=== PATIENT | male | born 1935 | race African-American/Black ===

== ENCOUNTER 2021-02-27 16:27 | Emergency (ER) | payer MEDICARE, MEDICAID ==
[~2021-02-27] VITALS: Ht 167.6 cm; Wt 69.0 kg
[~2021-02-27 16:27] MED LIST: GABA-529 MT
[2021-02-27 16:33] VITALS: BP 130/62
== END 2021-02-28 00:17 | disposition left against medical advice (07) ==
LOC: ER 16:27
DX: Z53.21 Procedure and treatment not carried out due to patient leaving prior to being seen by health care provider (principal)

== ENCOUNTER 2021-03-06 21:14 | Inpatient (IN) | payer MEDICARE, MEDICAID ==
[~2021-03-06] VITALS: Ht 170.2 cm; Wt 61.0 kg
[2021-03-06] MEDS ORDERED: ASPIRIN 325MG EC TABLET PO ONE (22:45)
[2021-03-06 22:46] LABS: CLARITY URINE CLEAR (CLEAR); COLOR URINE YELLOW (YELLOW); KETONES URINE NEGATIVE (NEGATIVE); LEUKOCYTE ESTERASE URINE NEGATIVE (NEGATIVE); NITRITE URINE NEGATIVE (NEGATIVE); OCCULT BLOOD URINE NEGATIVE (NEGATIVE); PH URINE 5.5 (4.5-8.0); PROTEIN URINE NEGATIVE (NEGATIVE); SPECIFIC GRAVITY URINE 1.008 (1.005-1.030); UROBILINOGEN URINE 0.2 E.U./dL (0.2-1.0)
[2021-03-06 22:58] LABS: *AMPHETAMINES SCREEN URINE NEGATIVE (NEGATIVE); *BARBITURATES SCREEN URINE NEGATIVE (NEGATIVE); *BENZODIAZEPINES SCREEN URINE NEGATIVE (NEGATIVE); *COCAINE SCREEN URINE NEGATIVE (NEGATIVE); METHADONE URINE SCREEN NEGATIVE (NEGATIVE); OPIATES URINE SCREEN NEGATIVE (NEGATIVE)
[2021-03-06 22:59] LABS: CANNABINOID URINE SCREEN NEGATIVE (NEGATIVE); PHENCYCLIDINE URINE SCREEN NEGATIVE (NEGATIVE)
[2021-03-07] MEDS ORDERED: GABAPENTIN 300MG CAPSULE PO ONE (00:15)
[2021-03-07] MEDS ORDERED: TRAZODONE HCL 50MG TABLET PO SCH (00:15)
[2021-03-07] MEDS ORDERED: DEXTROSE 50% WATER 50ML SYRINGE IV PRN (05:45)
[2021-03-07 06:00] VITALS: BP 154/78
[2021-03-07] MEDS ORDERED: BLOOD SUGAR DIAGNOSTIC STRIP TEST SCH (07:20)
[2021-03-07] MEDS ORDERED: INSULIN LISPRO 100 UNITS/ML SUBCUT SCH (07:50)
[2021-03-07 08:43] VITALS: BP 162/62
[2021-03-07] MEDS ORDERED: REGADENOSON 0.4 MG/5 ML IV SCH (09:30)
[2021-03-07] MEDS ORDERED: ACET-2708 MT (13:38)
== END 2021-03-07 10:38 | disposition left against medical advice (07) | DRG 313 ==
LOC: ER 21:14 → 6WST 03-07 01:03 → ENRESERV 03-07 03:07
PROVIDERS: ADMIT Family Medicine; ATTEND Family Medicine
DX: R07.9 Chest pain, unspecified (principal); E11.9 Type 2 diabetes mellitus without complications; I10 Essential (primary) hypertension; F17.200 Nicotine dependence, unspecified, uncomplicated; J44.9 Chronic obstructive pulmonary disease, unspecified; R51.9 Headache, unspecified; Z53.29 Procedure and treatment not carried out because of patient's decision for other reasons
CPT/HCPCS: 71045; 80305; 81003; 82962; 93005; 99285

== ENCOUNTER 2021-04-15 12:32 | Emergency (ER) | payer MEDICARE, MEDICAID ==
[~2021-04-15] VITALS: Ht 167.6 cm; Wt 66.0 kg
[~2021-04-15 12:32] MED LIST changes: +ACET-2708 MT
[2021-04-15 12:43] VITALS: BP 148/82
== END 2021-04-15 17:10 | disposition left against medical advice (07) ==
LOC: ER 12:32
DX: G89.29 Other chronic pain (principal); M79.672 Pain in left foot; M79.671 Pain in right foot
CPT/HCPCS: 99281

== ENCOUNTER 2021-04-19 14:58 | Emergency (ER) | payer OTHER, MEDICAID ==
[~2021-04-19] VITALS: Ht 175.3 cm; Wt 84.0 kg
[2021-04-19 15:06] VITALS: BP 147/64
[2021-04-19] MEDS ORDERED: NAPROXEN 375MG TABLET PO ONE (20:15)
[2021-04-19 20:39] LABS: CHLORIDE 99 mEq/L (98-107)
[2021-04-19 20:40] LABS: BASOPHILS % 1.7 % (0.0-2.0); EOSINOPHILS % 3.3 % (0.0-5.0); HEMATOCRIT. 33.2 % (42.0-52.0); HEMOGLOBIN. 10.4 g/dL (14.0-18.0); LYMPHOCYTES % 42.5 % (20.0-50.0); MEAN CORPUSCULAR HEMOGLOBIN 23.2 pg (28.0-32.0); MEAN PLATELET VOLUME 7.4 fl (7.4-10.4); MONOCYTES % 10.4 % (2.0-8.0); NEUTROPHILS % 42.1 % (40.0-76.0); PLATELET 404 x1000/uL (130-400); RED BLOOD CELL COUNT 4.49 mill/uL (4.7-6.1); RED CELL DISTRIBUTION WIDTH 17.3 % (11.6-14.6)
[2021-04-19] MEDS ORDERED: NAPR-679 MT (21:19)
== END 2021-04-19 22:40 | disposition home or self-care (01) ==
LOC: ER 14:58
DX: M79.10 Myalgia, unspecified site (principal); I49.9 Cardiac arrhythmia, unspecified
CPT/HCPCS: 36415; 80053; 85025; 93005; 99284

== ENCOUNTER 2021-04-29 12:16 | Emergency (ER) | payer OTHER, MEDICAID ==
[~2021-04-29] VITALS: Ht 170.2 cm; Wt 72.0 kg
[~2021-04-29 12:16] MED LIST changes: +NAPR-679 MT
[2021-04-29 13:03] VITALS: BP 156/65
== END 2021-04-29 13:57 | disposition home or self-care (01) ==
LOC: ER 12:16
DX: E11.9 Type 2 diabetes mellitus without complications (principal); I10 Essential (primary) hypertension
CPT/HCPCS: 93005; 99283

== ENCOUNTER 2021-05-04 09:52 | Emergency (ER) | payer OTHER, MEDICAID ==
[~2021-05-04] VITALS: Ht 167.6 cm; Wt 68.5 kg
[2021-05-04 11:24] LABS: BASOPHILS % 0.9 % (0.0-2.0); EOSINOPHILS % 2.5 % (0.0-5.0); HEMATOCRIT. 32.5 % (42.0-52.0); LYMPHOCYTES % 46.2 % (20.0-50.0); MEAN CORPUSCULAR HEMOGLOBIN 23.1 pg (28.0-32.0); MEAN PLATELET VOLUME 7.6 fl (7.4-10.4); MONOCYTES % 10.7 % (2.0-8.0); NEUTROPHILS % 39.7 % (40.0-76.0); PLATELET 408 x1000/uL (130-400); RED BLOOD CELL COUNT 4.33 mill/uL (4.7-6.1); RED CELL DISTRIBUTION WIDTH 17.8 % (11.6-14.6)
[2021-05-04 11:30] LABS: CHLORIDE 104 mEq/L (98-107)
[2021-05-04 11:34] LABS: ETHANOL BLOOD < 10 mg/dL; PROTHROMBIN TIME 10.6 sec (9.6-11.0)
[2021-05-04] MEDS ORDERED: PREG50CA MT (13:04)
[2021-05-04 15:06] LABS: CLARITY URINE CLEAR (CLEAR); COLOR URINE YELLOW (YELLOW); KETONES URINE NEGATIVE (NEGATIVE); LEUKOCYTE ESTERASE URINE NEGATIVE (NEGATIVE); NITRITE URINE NEGATIVE (NEGATIVE); OCCULT BLOOD URINE NEGATIVE (NEGATIVE); PROTEIN URINE NEGATIVE (NEGATIVE); SPECIFIC GRAVITY URINE 1.003 (1.005-1.030); UROBILINOGEN URINE 0.2 E.U./dL (0.2-1.0)
[2021-05-04 15:17] LABS: *AMPHETAMINES SCREEN URINE NEGATIVE (NEGATIVE); *BARBITURATES SCREEN URINE NEGATIVE (NEGATIVE); *BENZODIAZEPINES SCREEN URINE NEGATIVE (NEGATIVE); *COCAINE SCREEN URINE NEGATIVE (NEGATIVE); METHADONE URINE SCREEN NEGATIVE (NEGATIVE); OPIATES URINE SCREEN NEGATIVE (NEGATIVE)
[2021-05-04 15:18] LABS: CANNABINOID URINE SCREEN NEGATIVE (NEGATIVE); PHENCYCLIDINE URINE SCREEN NEGATIVE (NEGATIVE)
[2021-05-04 15:24] VITALS: BP 152/62
== END 2021-05-04 16:10 | disposition home or self-care (01) ==
LOC: ER 09:52
DX: G62.9 Polyneuropathy, unspecified (principal)
CPT/HCPCS: 36415; 80053; 80305; 80320; 81003; 85025; 99283; G0480

== ENCOUNTER 2021-05-04 17:03 | Emergency (ER) | payer OTHER, MEDICAID ==
[~2021-05-04] VITALS: Ht 170.2 cm; Wt 57.0 kg
[~2021-05-04 17:03] MED LIST changes: +PREG50CA MT
[2021-05-05] MEDS ORDERED: ACETAMINOPHEN 325MG TABLET PO ONE
[2021-05-05 02:05] VITALS: BP 139/67
== END 2021-05-05 02:07 | disposition home or self-care (01) ==
LOC: ER 17:03
DX: R10.9 Unspecified abdominal pain (principal); Z53.21 Procedure and treatment not carried out due to patient leaving prior to being seen by health care provider
CPT/HCPCS: 99282

== ENCOUNTER 2021-05-07 13:57 | Emergency (ER) | payer OTHER, MEDICAID ==
[~2021-05-07] VITALS: Ht 165.1 cm; Wt 80.0 kg
[2021-05-07] MEDS ORDERED: PREG50CA MT (15:04)
[2021-05-07 15:15] VITALS: BP 128/76
== END 2021-05-07 15:15 | disposition home or self-care (01) ==
LOC: ER 13:57
DX: E11.42 Type 2 diabetes mellitus with diabetic polyneuropathy (principal); I10 Essential (primary) hypertension; E78.5 Hyperlipidemia, unspecified; Z79.899 Other long term (current) drug therapy
CPT/HCPCS: 99283

== ENCOUNTER 2021-06-03 14:57 | Emergency (ER) | payer OTHER, MEDICAID ==
[~2021-06-03] VITALS: Ht 167.6 cm; Wt 80.0 kg
[2021-06-03 14:59] VITALS: BP 134/72
[2021-06-03 19:33] LABS: ETHANOL BLOOD < 10 mg/dL
== END 2021-06-03 16:45 | disposition left against medical advice (07) ==
LOC: ER 14:57
DX: Z13.9 Encounter for screening, unspecified (principal)
CPT/HCPCS: 36415; 80307; 80320; 80329; 99283; G0480

== ENCOUNTER 2021-06-03 17:03 | Emergency (ER) | payer OTHER, MEDICAID ==
[~2021-06-03] VITALS: Ht 167.6 cm; Wt 57.0 kg
[2021-06-03] MEDS ORDERED: IBUPROFEN 600MG TABLET PO STA (17:53)
[2021-06-03] MEDS ORDERED: ACETAMINOPHEN 325MG TABLET PO ONE (18:00)
[2021-06-03 18:23] VITALS: BP 176/47
[2021-06-03 19:09] LABS: EOSINOPHILS % 3.1 % (0.0-5.0); HEMOGLOBIN. 10.3 g/dL (14.0-18.0); MEAN CORPUSCULAR HEMOGLOBIN 23.7 pg (28.0-32.0); MEAN CORPUSCULAR VOLUME 75.5 fL (80.0-94.0); MEAN PLATELET VOLUME 7.7 fl (7.4-10.4); MONOCYTES % 7.9 % (2.0-8.0); PLATELET 395 x1000/uL (130-400); RED BLOOD CELL COUNT 4.37 mill/uL (4.7-6.1); RED CELL DISTRIBUTION WIDTH 18.6 % (11.6-14.6)
[2021-06-03 19:14] LABS: CHLORIDE 104 mEq/L (98-107)
== END 2021-06-03 19:57 | disposition home or self-care (01) ==
LOC: ER 17:03
DX: R25.2 Cramp and spasm (principal); I10 Essential (primary) hypertension; Z20.822 Contact with and (suspected) exposure to COVID-19; Z98.890 Other specified postprocedural states
CPT/HCPCS: 36415; 71045; 80053; 84484; 85025; 87426; 93005; 99285

== ENCOUNTER 2021-06-07 13:36 | Emergency (ER) | payer OTHER, MEDICAID ==
[~2021-06-07] VITALS: Ht 170.2 cm; Wt 69.0 kg
[2021-06-07 13:39] VITALS: BP 154/88
== END 2021-06-07 14:32 | disposition left against medical advice (07) ==
LOC: ER 13:48
DX: M79.10 Myalgia, unspecified site (principal); I10 Essential (primary) hypertension; Z79.899 Other long term (current) drug therapy; Z98.890 Other specified postprocedural states
CPT/HCPCS: 99283

== ENCOUNTER 2021-06-07 14:49 | Emergency (ER) | payer OTHER, MEDICAID ==
[~2021-06-07] VITALS: Ht 167.6 cm; Wt 60.0 kg
[2021-06-07 14:53] VITALS: BP 165/61
== END 2021-06-07 16:27 | disposition left against medical advice (07) ==
LOC: ER 14:49
DX: Z53.21 Procedure and treatment not carried out due to patient leaving prior to being seen by health care provider (principal)

== ENCOUNTER 2021-06-09 16:07 | Emergency (ER) | payer OTHER, MEDICAID ==
[~2021-06-09] VITALS: Ht 172.7 cm; Wt 64.0 kg
[2021-06-09 17:31] LABS: BASOPHILS % 1.1 % (0.0-2.0); EOSINOPHILS % 2.1 % (0.0-5.0); HEMATOCRIT. 32.3 % (42.0-52.0); MEAN CORPUSCULAR HEMOGLOBIN 23.4 pg (28.0-32.0); MEAN CORPUSCULAR VOLUME 75.9 fL (80.0-94.0); MONOCYTES % 10.3 % (2.0-8.0); NEUTROPHILS % 42.5 % (40.0-76.0); PLATELET 380 x1000/uL (130-400); RED BLOOD CELL COUNT 4.26 mill/uL (4.7-6.1); RED CELL DISTRIBUTION WIDTH 18.7 % (11.6-14.6)
[2021-06-09 17:39] LABS: CHLORIDE 105 mEq/L (98-107)
[2021-06-09] MEDS ORDERED: KETOROLAC 60MG/2ML VIAL IM ONE (18:45)
[2021-06-09] MEDS ORDERED: TRAMADOL 50MG TABLET PO ONE (18:45)
[2021-06-09 21:06] VITALS: BP 145/81
== END 2021-06-09 21:08 | disposition home or self-care (01) ==
LOC: ER 16:07
DX: G89.29 Other chronic pain (principal); M79.672 Pain in left foot; M79.671 Pain in right foot; M79.642 Pain in left hand; M79.641 Pain in right hand
CPT/HCPCS: 36415; 80048; 85025; 96372; 99283; J1885

== ENCOUNTER 2021-06-11 13:35 | Emergency (ER) | payer OTHER, MEDICAID ==
[~2021-06-11] VITALS: Ht 167.6 cm; Wt 73.0 kg
[2021-06-11 13:36] VITALS: BP 148/76
[2021-06-11] MEDS ORDERED: IBUPROFEN 600MG TABLET PO STA (15:20)
[2021-06-11] MEDS ORDERED: GABAPENTIN 300MG CAPSULE PO STA (16:34)
== END 2021-06-11 17:55 | disposition home or self-care (01) ==
LOC: ER 13:35
DX: G62.9 Polyneuropathy, unspecified (principal); G89.29 Other chronic pain; M79.672 Pain in left foot; M79.671 Pain in right foot; M79.642 Pain in left hand; M79.641 Pain in right hand; I10 Essential (primary) hypertension; Z79.899 Other long term (current) drug therapy
CPT/HCPCS: 99283

== ENCOUNTER 2021-06-11 18:03 | Emergency (ER) | payer OTHER, MEDICAID ==
[~2021-06-11] VITALS: Ht 162.6 cm; Wt 60.0 kg
[2021-06-11] MEDS ORDERED: IBUPROFEN 400MG TABLET PO ONE (22:30)
[2021-06-11 23:16] VITALS: BP 134/82
== END 2021-06-11 23:16 | disposition home or self-care (01) ==
LOC: ER 18:03
DX: G62.9 Polyneuropathy, unspecified (principal); R51.9 Headache, unspecified; I10 Essential (primary) hypertension
CPT/HCPCS: 82962; 99282

== ENCOUNTER 2021-06-12 01:02 | Emergency (ER) | payer OTHER, MEDICAID ==
[~2021-06-12] VITALS: Ht 157.5 cm; Wt 61.0 kg
[2021-06-12] MEDS ORDERED: HYDROCODONE/ACETAMINOPHEN 5/325MG TABLET PO ONE (02:00)
[2021-06-12 02:06] VITALS: BP 154/91
== END 2021-06-12 02:16 | disposition home or self-care (01) ==
LOC: ER 01:02
DX: M79.671 Pain in right foot (principal); M79.672 Pain in left foot; G89.29 Other chronic pain; G62.9 Polyneuropathy, unspecified; I10 Essential (primary) hypertension; Z79.899 Other long term (current) drug therapy
CPT/HCPCS: 99283

== ENCOUNTER 2021-06-19 17:15 | Emergency (ER) | payer OTHER, MEDICAID ==
[~2021-06-19] VITALS: Ht 165.1 cm; Wt 75.0 kg
[2021-06-19 20:58] VITALS: BP 145/85
== END 2021-06-19 23:00 | disposition home or self-care (01) ==
LOC: ER 17:15
DX: M79.18 Myalgia, other site (principal); G89.29 Other chronic pain; I10 Essential (primary) hypertension; Z79.899 Other long term (current) drug therapy
CPT/HCPCS: 99281

== ENCOUNTER 2021-06-22 16:10 | Emergency (ER) | payer OTHER, MEDICAID ==
[~2021-06-22] VITALS: Ht 170.2 cm; Wt 68.0 kg
[2021-06-22 16:13] VITALS: BP 180/70
[2021-06-22] MEDS ORDERED: ACETAMINOPHEN 325MG TABLET PO ONE (16:45)
== END 2021-06-22 18:00 | disposition home or self-care (01) ==
LOC: ER 16:10
DX: G89.29 Other chronic pain (principal); M79.605 Pain in left leg; M79.604 Pain in right leg; I10 Essential (primary) hypertension
CPT/HCPCS: 99283

== ENCOUNTER 2021-06-22 18:22 | Emergency (ER) | payer OTHER, MEDICAID ==
[~2021-06-22] VITALS: Ht 165.1 cm; Wt 75.0 kg
[2021-06-22 18:25] VITALS: BP 157/70
[2021-06-22 20:21] LABS: BASOPHILS % 1.2 % (0.0-2.0); CHLORIDE 104 mEq/L (98-107); EOSINOPHILS % 3.5 % (0.0-5.0); HEMATOCRIT. 33.9 % (42.0-52.0); HEMOGLOBIN. 10.5 g/dL (14.0-18.0); LYMPHOCYTES % 53.9 % (20.0-50.0); MEAN CORPUSCULAR HEMOGLOBIN 23.6 pg (28.0-32.0); MEAN CORPUSCULAR VOLUME 76.2 fL (80.0-94.0); MEAN PLATELET VOLUME 7.8 fl (7.4-10.4); MONOCYTES % 9.1 % (2.0-8.0); NEUTROPHILS % 32.3 % (40.0-76.0); PLATELET 323 x1000/uL (130-400); RED BLOOD CELL COUNT 4.44 mill/uL (4.7-6.1); RED CELL DISTRIBUTION WIDTH 18.4 % (11.6-14.6)
== END 2021-06-22 20:56 | disposition home or self-care (01) ==
LOC: ER 18:22
DX: G62.9 Polyneuropathy, unspecified (principal); D64.9 Anemia, unspecified; R73.9 Hyperglycemia, unspecified; I10 Essential (primary) hypertension
CPT/HCPCS: 36415; 80053; 85025; 99283

== ENCOUNTER 2021-06-25 16:33 | Emergency (ER) | payer OTHER, MEDICAID ==
[~2021-06-25] VITALS: Ht 172.7 cm; Wt 75.0 kg
[2021-06-25 16:50] VITALS: BP 154/96
[2021-06-25] MEDS ORDERED: ACETAMINOPHEN 325MG TABLET PO STA (17:17)
[2021-06-25 19:20] LABS: BASOPHILS % 1.3 % (0.0-2.0); EOSINOPHILS % 2.9 % (0.0-5.0); HEMATOCRIT. 33.2 % (42.0-52.0); HEMOGLOBIN. 10.1 g/dL (14.0-18.0); LYMPHOCYTES % 50.5 % (20.0-50.0); MEAN CORPUSCULAR HEMOGLOBIN 22.9 pg (28.0-32.0); MEAN CORPUSCULAR VOLUME 75.6 fL (80.0-94.0); MEAN PLATELET VOLUME 7.8 fl (7.4-10.4); MONOCYTES % 10.1 % (2.0-8.0); NEUTROPHILS % 35.2 % (40.0-76.0); PLATELET 346 x1000/uL (130-400); RED BLOOD CELL COUNT 4.39 mill/uL (4.7-6.1); RED CELL DISTRIBUTION WIDTH 18.5 % (11.6-14.6)
[2021-06-25 19:22] LABS: CHLORIDE 103 mEq/L (98-107)
[2021-06-25 19:46] LABS: CLARITY URINE CLEAR (CLEAR); COLOR URINE YELLOW (YELLOW); KETONES URINE NEGATIVE (NEGATIVE); LEUKOCYTE ESTERASE URINE NEGATIVE (NEGATIVE); NITRITE URINE NEGATIVE (NEGATIVE); OCCULT BLOOD URINE NEGATIVE (NEGATIVE); PH URINE 6.5 (4.5-8.0); PROTEIN URINE NEGATIVE (NEGATIVE)
== END 2021-06-25 20:30 | disposition home or self-care (01) ==
LOC: ER 16:33
DX: R53.1 Weakness (principal); M79.18 Myalgia, other site; I10 Essential (primary) hypertension; D64.9 Anemia, unspecified; F41.9 Anxiety disorder, unspecified
CPT/HCPCS: 36415; 71045; 80053; 81003; 85025; 93005; 99285

== ENCOUNTER 2021-06-28 12:53 | Emergency (ER) | payer OTHER, MEDICAID ==
[~2021-06-28] VITALS: Ht 162.6 cm; Wt 58.0 kg
[2021-06-28] MEDS ORDERED: ACETAMINOPHEN 325MG TABLET PO STA (13:26)
[2021-06-28] MEDS ORDERED: GABAPENTIN 300MG CAPSULE PO STA (15:13)
[2021-06-28 15:57] VITALS: BP 149/73
== END 2021-06-28 16:00 | disposition home or self-care (01) ==
LOC: ER 12:57
DX: M79.672 Pain in left foot (principal); M79.671 Pain in right foot; G62.9 Polyneuropathy, unspecified; I10 Essential (primary) hypertension; F41.9 Anxiety disorder, unspecified; F03.90 Unspecified dementia, unspecified severity, without behavioral disturbance, psychotic disturbance, mood disturbance, and anxiety; Z79.899 Other long term (current) drug therapy
CPT/HCPCS: 99283

== ENCOUNTER 2021-07-08 16:12 | Emergency (ER) | payer OTHER, MEDICAID ==
[~2021-07-08] VITALS: Ht 175.3 cm; Wt 69.0 kg
[2021-07-08] MEDS ORDERED: KETOROLAC 60MG/2ML VIAL IM ONE (18:00)
[2021-07-08] MEDS ORDERED: GABAPENTIN 300MG CAPSULE PO ONE (18:00)
[2021-07-08] MEDS ORDERED: ACETAMINOPHEN 325MG TABLET PO ONE (18:00)
[2021-07-08 18:08] VITALS: BP 140/66
== END 2021-07-08 18:10 | disposition left against medical advice (07) ==
LOC: ER 16:12
DX: G62.9 Polyneuropathy, unspecified (principal); I10 Essential (primary) hypertension
CPT/HCPCS: 99283; J1885

== ENCOUNTER 2021-07-31 18:01 | Emergency (ER) | payer OTHER, MEDICAID ==
[~2021-07-31] VITALS: Ht 167.6 cm; Wt 70.0 kg
[2021-07-31 18:32] VITALS: BP 166/84
== END 2021-08-01 00:24 | disposition left against medical advice (07) ==
LOC: ER 18:01
DX: Z53.21 Procedure and treatment not carried out due to patient leaving prior to being seen by health care provider (principal)

== ENCOUNTER 2021-08-09 18:35 | Emergency (ER) | payer OTHER, MEDICAID ==
[~2021-08-09] VITALS: Ht 172.7 cm; Wt 75.0 kg
[2021-08-10] MEDS ORDERED: IBUPROFEN 400MG TABLET PO ONE (00:15)
[2021-08-10] MEDS ORDERED: ACETAMINOPHEN 325MG TABLET PO ONE (00:15)
[2021-08-10 05:47] VITALS: BP 136/50
[2021-08-10] MEDS ORDERED: TOPUD PO (07:39)
== END 2021-08-10 07:07 | disposition home or self-care (01) ==
LOC: ER 18:35
DX: R51.9 Headache, unspecified (principal); H93.13 Tinnitus, bilateral; F41.9 Anxiety disorder, unspecified; I10 Essential (primary) hypertension; F17.290 Nicotine dependence, other tobacco product, uncomplicated; Z79.899 Other long term (current) drug therapy
CPT/HCPCS: 99284; 99406

== ENCOUNTER 2021-08-10 07:09 | Emergency (ER) | payer OTHER, MEDICAID ==
[~2021-08-10] VITALS: Ht 165.1 cm; Wt 53.0 kg
[2021-08-10 07:31] VITALS: BP 155/61
[2021-08-10] MEDS ORDERED: TOPUD PO (07:39)
[2021-08-10] MEDS ORDERED: ACETAMINOPHEN 325MG TABLET PO ONE (07:45)
== END 2021-08-10 09:54 | disposition home or self-care (01) ==
LOC: ER 07:09
DX: G89.29 Other chronic pain (principal); F41.9 Anxiety disorder, unspecified; I10 Essential (primary) hypertension; F17.200 Nicotine dependence, unspecified, uncomplicated; Z79.899 Other long term (current) drug therapy
CPT/HCPCS: 99282

== ENCOUNTER 2021-08-16 07:10 | Emergency (ER) | payer OTHER, MEDICAID ==
[~2021-08-16] VITALS: Ht 157.5 cm; Wt 57.0 kg
[~2021-08-16 07:10] MED LIST changes: +TOPUD PO
[2021-08-16 07:22] VITALS: BP 153/60
[2021-08-16] MEDS ORDERED: PREG50CA MT (07:42)
[2021-08-16] MEDS ORDERED: KETOROLAC 60MG/2ML VIAL IM ONE (07:45)
== END 2021-08-16 11:11 | disposition home or self-care (01) ==
LOC: ER 07:10
DX: G62.9 Polyneuropathy, unspecified (principal); I10 Essential (primary) hypertension
CPT/HCPCS: 96372; 99283; J1885

== ENCOUNTER 2021-08-22 12:16 | Emergency (ER) | payer OTHER, MEDICAID ==
[~2021-08-22] VITALS: Ht 167.6 cm; Wt 54.0 kg
[2021-08-22 12:18] VITALS: BP 154/91
[2021-08-22] MEDS ORDERED: GABA300C MT (12:21)
[2021-08-22] MEDS ORDERED: GABAPENTIN 300MG CAPSULE PO ONE (12:30)
== END 2021-08-22 12:43 | disposition home or self-care (01) ==
LOC: ER 12:16
DX: G62.9 Polyneuropathy, unspecified (principal); I10 Essential (primary) hypertension
CPT/HCPCS: 99283

== ENCOUNTER 2021-08-22 12:51 | Emergency (ER) | payer OTHER, MEDICAID ==
[~2021-08-22] VITALS: Ht 165.1 cm; Wt 75.0 kg
[~2021-08-22 12:51] MED LIST changes: +GABA300C MT
[2021-08-22 13:13] VITALS: BP 169/50
== END 2021-08-22 18:00 | disposition left against medical advice (07) ==
LOC: ER 12:51
DX: K14.6 Glossodynia (principal)
CPT/HCPCS: 99281

== ENCOUNTER 2021-08-22 22:00 | Emergency (ER) | payer OTHER, MEDICAID ==
[~2021-08-22] VITALS: Ht 167.6 cm; Wt 71.0 kg
[2021-08-23] MEDS ORDERED: HALOPERIDOL LACTATE 5MG/ML VIAL IM ONE (02:00)
[2021-08-23 03:17] LABS: BASOPHILS % 0.9 % (0.0-2.0); EOSINOPHILS % 2.1 % (0.0-5.0); HEMATOCRIT. 29.2 % (42.0-52.0); HEMOGLOBIN. 9.2 g/dL (14.0-18.0); LYMPHOCYTES % 33.6 % (20.0-50.0); MEAN CORPUSCULAR HEMOGLOBIN 24.1 pg (28.0-32.0); MEAN CORPUSCULAR VOLUME 76.2 fL (80.0-94.0); MEAN PLATELET VOLUME 7.7 fl (7.4-10.4); MONOCYTES % 11.7 % (2.0-8.0); NEUTROPHILS % 51.7 % (40.0-76.0); PLATELET 330 x1000/uL (130-400); RED BLOOD CELL COUNT 3.83 mill/uL (4.7-6.1); RED CELL DISTRIBUTION WIDTH 16.9 % (11.6-14.6)
[2021-08-23 03:34] LABS: CHLORIDE 108 mEq/L (98-107)
[2021-08-23 03:38] LABS: ETHANOL BLOOD < 10 mg/dL
[2021-08-23 04:00] VITALS: BP 127/57
[2021-08-23] MEDS ORDERED: ACETAMINOPHEN 325MG TABLET PO ONE (05:00)
== END 2021-08-23 09:03 | disposition left against medical advice (07) ==
LOC: ER 22:00
DX: R20.8 Other disturbances of skin sensation (principal); F03.90 Unspecified dementia, unspecified severity, without behavioral disturbance, psychotic disturbance, mood disturbance, and anxiety; Z74.2 Need for assistance at home and no other household member able to render care
CPT/HCPCS: 36415; 80053; 80307; 80320; 80329; 85025; 99283; J1630; 80305; G0480

== ENCOUNTER 2021-10-12 16:08 | Inpatient (IN) | payer MEDICARE, MEDICAID ==
[~2021-10-12] VITALS: Ht 165.1 cm; Wt 65.8 kg
[2021-10-12] MEDS ORDERED: SODIUM CHLORIDE 0.9% 1,000 ML IV ONE (17:15)
[2021-10-12] MEDS ORDERED: GABAPENTIN 100MG CAPSULE PO ONE (17:15)
[2021-10-12] MEDS ORDERED: ACETAMINOPHEN 500MG TABLET PO NR (18:00)
[2021-10-12 18:02] LABS: BASOPHILS % 1.2 % (0.0-2.0); EOSINOPHILS % 3.4 % (0.0-5.0); HEMATOCRIT. 32.4 % (42.0-52.0); HEMOGLOBIN. 10.2 g/dL (14.0-18.0); LYMPHOCYTES % 42.6 % (20.0-50.0); MEAN CORPUSCULAR HEMOGLOBIN 23.5 pg (28.0-32.0); MEAN PLATELET VOLUME 7.7 fl (7.4-10.4); MONOCYTES % 9.8 % (2.0-8.0); PLATELET 282 x1000/uL (130-400); RED BLOOD CELL COUNT 4.33 mill/uL (4.7-6.1); RED CELL DISTRIBUTION WIDTH 17.1 % (11.6-14.6)
[2021-10-12 18:07] LABS: CHLORIDE 104 mEq/L (98-107)
[2021-10-12 18:12] LABS: ETHANOL BLOOD < 10 mg/dL
[2021-10-12 18:45] LABS: CLARITY URINE CLEAR (CLEAR); COLOR URINE YELLOW (YELLOW); KETONES URINE NEGATIVE (NEGATIVE); LEUKOCYTE ESTERASE URINE NEGATIVE (NEGATIVE); NITRITE URINE NEGATIVE (NEGATIVE); OCCULT BLOOD URINE NEGATIVE (NEGATIVE); PROTEIN URINE NEGATIVE (NEGATIVE); SPECIFIC GRAVITY URINE 1.006 (1.005-1.030); UROBILINOGEN URINE 0.2 E.U./dL (0.2-1.0)
[2021-10-12] MEDS ORDERED: GABA-529 MT (19:02)
[2021-10-12 19:48] LABS: *AMPHETAMINES SCREEN URINE NEGATIVE (NEGATIVE); *BARBITURATES SCREEN URINE NEGATIVE (NEGATIVE)
[2021-10-12 19:50] LABS: *BENZODIAZEPINES SCREEN URINE NEGATIVE (NEGATIVE); *COCAINE SCREEN URINE NEGATIVE (NEGATIVE); CANNABINOID URINE SCREEN NEGATIVE (NEGATIVE); METHADONE URINE SCREEN NEGATIVE (NEGATIVE); OPIATES URINE SCREEN NEGATIVE (NEGATIVE); PHENCYCLIDINE URINE SCREEN NEGATIVE (NEGATIVE)
[2021-10-12] MEDS ORDERED: LORAZEPAM 2MG/ML CPJ IV ONE (21:45)
[2021-10-12] MEDS ORDERED: KETOROLAC 15MG/ML VIAL IV ONE (21:45)
[2021-10-12] MEDS ORDERED: GUAIFENESIN 200MG/10ML SUGAR FREE UDC PO PRN (22:15)
[2021-10-12] MEDS ORDERED: NITROGLYCERIN 0.4MG TABLET SL SL PRN (22:15)
[2021-10-12] MEDS ORDERED: DOCUSATE SODIUM 100MG CAPSULE PO PRN (22:15)
[2021-10-12] MEDS ORDERED: IPRATROPIUM/ALBUTEROL 0.5-3(2.5)MG/3ML NEB NEB PRN (22:15)
[2021-10-12] MEDS ORDERED: CLONIDINE 0.1MG TABLET PO PRN (22:15)
[2021-10-12] MEDS ORDERED: TRAMADOL 50MG TABLET PO PRN (22:15)
[2021-10-12] MEDS ORDERED: MAGNESIUM/ALUMINUM HYDROXIDE/SIMETHICONE 30ML UDC PO PRN (22:15)
[2021-10-12] MEDS ORDERED: ACETAMINOPHEN 325MG TABLET PO PRN ×2 (22:15)
[2021-10-12] MEDS ORDERED: ONDANSETRON HCL 4MG/2ML INJ IV PRN (22:15)
[2021-10-12 23:14] LABS: T4 FREE 0.75 ng/dL (0.76-1.46)
[2021-10-12 23:43] LABS: FOLIC ACID (FOLATE) SERUM > 20.00 ng/mL (>5.38)
[2021-10-12 23:48] LABS: VITAMIN B12 SERUM 306 pg/mL (211-911)
[2021-10-13] MEDS: KETOROLAC 15MG/ML VIAL IV PRN ×2 (03:25→15:30)
[2021-10-13] MEDS: ENOXAPARIN 40MG/0.4ML SYR SUBCUT SCH (08:09)
[2021-10-13 08:34] LABS: BASOPHILS % 1.2 % (0.0-2.0); EOSINOPHILS % 3.5 % (0.0-5.0); HEMATOCRIT. 31.1 % (42.0-52.0); HEMOGLOBIN. 9.7 g/dL (14.0-18.0); LYMPHOCYTES % 39.1 % (20.0-50.0); MEAN CORPUSCULAR HEMOGLOBIN 23.3 pg (28.0-32.0); MEAN CORPUSCULAR VOLUME 74.9 fL (80.0-94.0); MONOCYTES % 10.3 % (2.0-8.0); NEUTROPHILS % 45.9 % (40.0-76.0); PLATELET 281 x1000/uL (130-400); RED BLOOD CELL COUNT 4.15 mill/uL (4.7-6.1); RED CELL DISTRIBUTION WIDTH 17.1 % (11.6-14.6)
[2021-10-13 08:50] LABS: CHLORIDE 105 mEq/L (98-107)
[2021-10-13] MEDS ORDERED: ASPIRIN 325MG EC TABLET PO SCH (09:00)
[2021-10-13 09:01] LABS: CREATINE KINASE 100 IU/L (39-308)
[2021-10-13 09:03] LABS: PHOSPHORUS 2.8 mg/dL (2.5-4.9)
[2021-10-13 09:07] LABS: CREATINE KINASE MB FRACTION < 1.0 ng/mL (0.5-3.6)
[2021-10-13] MEDS: LEVOTHYROXINE SODIUM 25MCG TABLET PO SCH (11:21)
[2021-10-13] MEDS: CLOPIDOGREL 75MG TABLET PO SCH (11:21)
[2021-10-13] MEDS: AMLODIPINE 10MG TABLET PO SCH (11:27)
[2021-10-13 12:00] VITALS: BP 152/55
[2021-10-13 12:19] VITALS: BP 152/55
[2021-10-13] MEDS: HALOPERIDOL LACTATE 5MG/ML VIAL IM PRN (14:24)
[2021-10-13 16:00] VITALS: BP 152/61
[2021-10-13 18:38] LABS: CREATINE KINASE 246 IU/L (39-308)
[2021-10-13 18:39] LABS: CREATINE KINASE MB FRACTION 1.5 ng/mL (0.5-3.6)
[2021-10-13] MEDS: NICOTINE 14MG PATCH TD SCH (19:06)
[2021-10-13] MEDS: ATORVASTATIN CALCIUM 20MG TABLET PO SCH (20:39)
[2021-10-13] MEDS: FAMOTIDINE 20MG TABLET PO SCH (20:39)
[2021-10-14] VITALS: BP 136/89
[2021-10-14] MEDS: ZOLPIDEM TARTRATE 5MG TABLET PO PRN (00:19)
[2021-10-14 04:00] VITALS: BP 160/37
[2021-10-14] MEDS: HALOPERIDOL LACTATE 5MG/ML VIAL IM PRN ×2 (05:04→20:06)
[2021-10-14 08:00] VITALS: BP 130/70
[2021-10-14] MEDS: LEVOTHYROXINE SODIUM 25MCG TABLET PO SCH (10:06)
[2021-10-14] MEDS: NICOTINE 14MG PATCH TD SCH (10:06)
[2021-10-14] MEDS: AMLODIPINE 10MG TABLET PO SCH (10:07)
[2021-10-14] MEDS: CLOPIDOGREL 75MG TABLET PO SCH (10:07)
[2021-10-14] MEDS: ENOXAPARIN 40MG/0.4ML SYR SUBCUT SCH (10:07)
[2021-10-14 12:00] VITALS: BP 142/75
[2021-10-14 16:00] VITALS: BP 148/79
[2021-10-14 20:00] VITALS: BP 157/63
[2021-10-14] MEDS: ATORVASTATIN CALCIUM 20MG TABLET PO SCH (20:06)
[2021-10-14] MEDS: FAMOTIDINE 20MG TABLET PO SCH (20:06)
[2021-10-15] VITALS: BP 164/69
[2021-10-15] MEDS: ZOLPIDEM TARTRATE 5MG TABLET PO PRN ×2 (00:31→20:11)
[2021-10-15 04:00] VITALS: BP 129/81
[2021-10-15] MEDS: LEVOTHYROXINE SODIUM 25MCG TABLET PO SCH (05:36)
[2021-10-15 08:00] VITALS: BP 135/79
[2021-10-15] MEDS: AMLODIPINE 10MG TABLET PO SCH (08:59)
[2021-10-15] MEDS: CLOPIDOGREL 75MG TABLET PO SCH (08:59)
[2021-10-15] MEDS: ENOXAPARIN 40MG/0.4ML SYR SUBCUT SCH (08:59)
[2021-10-15] MEDS: NICOTINE 14MG PATCH TD SCH (08:59)
[2021-10-15 12:00] VITALS: BP 125/80
[2021-10-15] MEDS: HALOPERIDOL LACTATE 5MG/ML VIAL IM PRN (14:27)
[2021-10-15 16:00] VITALS: BP 141/79
[2021-10-15] MEDS ORDERED: NALOXONE HCL 0.4MG/ML VIAL IV PRN (16:15)
[2021-10-15 20:00] VITALS: BP 148/77
[2021-10-15] MEDS: FAMOTIDINE 20MG TABLET PO SCH (20:11)
[2021-10-15] MEDS: ATORVASTATIN CALCIUM 20MG TABLET PO SCH (20:11)
[2021-10-16] VITALS: BP 114/58
[2021-10-16 04:00] VITALS: BP 107/59
[2021-10-16] MEDS: LEVOTHYROXINE SODIUM 25MCG TABLET PO SCH (05:19)
[2021-10-16 08:00] VITALS: BP 150/66
[2021-10-16] MEDS: NICOTINE 14MG PATCH TD SCH (08:12)
[2021-10-16] MEDS: CLOPIDOGREL 75MG TABLET PO SCH (08:12)
[2021-10-16] MEDS: ENOXAPARIN 40MG/0.4ML SYR SUBCUT SCH (08:12)
[2021-10-16] MEDS: AMLODIPINE 10MG TABLET PO SCH (08:12)
[2021-10-16 11:17] VITALS: BP 150/66
== END 2021-10-16 12:28 | disposition home health service (06) | DRG 73 ==
LOC: ER 16:08 → MICUSO 21:32 → SUPCPDRO 22:15 → EDBEDREQ 22:36 → EDBEDREQSVC 22:36 → 8WST 10-13 09:10
PROVIDERS: ADMIT Internal Medicine; ATTEND Internal Medicine
DX: G62.9 Polyneuropathy, unspecified (principal); G92.8 Other toxic encephalopathy; E87.1 Hypo-osmolality and hyponatremia; I73.9 Peripheral vascular disease, unspecified; R26.2 Difficulty in walking, not elsewhere classified; E03.9 Hypothyroidism, unspecified; J44.9 Chronic obstructive pulmonary disease, unspecified; R73.03 Prediabetes; F17.210 Nicotine dependence, cigarettes, uncomplicated; E78.00 Pure hypercholesterolemia, unspecified; I10 Essential (primary) hypertension; Z20.822 Contact with and (suspected) exposure to COVID-19; D63.8 Anemia in other chronic diseases classified elsewhere; Z79.02 Long term (current) use of antithrombotics/antiplatelets; Z78.1 Physical restraint status; Z71.6 Tobacco abuse counseling
CPT/HCPCS: 36415; 70551; 71045; 80053; 80061; 80305; 80320; 81003; 82550; 82553; 82607; 82746; 83036; 83735; 83880; 84100; 84145; 84439; 84443; 84484; 85025; 87426; 93005; 93306; 93923; 93970; 97166; 99285; C1893; J1630; J1650; J1885; J2060; J7030; G0480

== ENCOUNTER 2021-11-25 16:58 | Emergency (ER) | payer MEDICARE, MEDICAID ==
[~2021-11-25] VITALS: Ht 175.3 cm; Wt 91.0 kg
[2021-11-25 17:06] VITALS: BP 177/92
[2021-11-25] MEDS ORDERED: KETOROLAC 60MG/2ML VIAL IM ONE (18:00)
[2021-11-25] MEDS ORDERED: GABAPENTIN 300MG CAPSULE PO ONE (18:00)
== END 2021-11-25 18:56 | disposition home or self-care (01) ==
LOC: ER 16:58
DX: G89.29 Other chronic pain (principal); I10 Essential (primary) hypertension; Z79.899 Other long term (current) drug therapy
CPT/HCPCS: 96372; 99283; J1885

== ENCOUNTER 2021-11-25 19:35 | Emergency (ER) | payer MEDICARE, MEDICAID | END 2021-11-25 22:00 | disposition left against medical advice (07) | LOC: ER 19:35 | DX: Z53.21 Procedure and treatment not carried out due to patient leaving prior to being seen by health care provider (principal) ==

== ENCOUNTER 2021-12-04 19:41 | Emergency (ER) | payer MEDICARE, MEDICAID ==
[~2021-12-04] VITALS: Ht 162.6 cm; Wt 64.0 kg
[2021-12-04] MEDS ORDERED: ACETAMINOPHEN 325MG TABLET PO ONE (20:30)
[2021-12-04 21:05] LABS: EOSINOPHILS % 3.5 % (0.0-5.0); HEMATOCRIT. 31.7 % (42.0-52.0); HEMOGLOBIN. 9.3 g/dL (14.0-18.0); LYMPHOCYTES % 46.2 % (20.0-50.0); MEAN CORPUSCULAR HEMOGLOBIN 23.3 pg (28.0-32.0); MEAN CORPUSCULAR VOLUME 79.8 fL (80.0-94.0); MEAN PLATELET VOLUME 7.7 fl (7.4-10.4); MONOCYTES % 11.2 % (2.0-8.0); NEUTROPHILS % 38.1 % (40.0-76.0); PLATELET 366 x1000/uL (130-400); RED BLOOD CELL COUNT 3.98 mill/uL (4.7-6.1)
[2021-12-04 21:13] LABS: CHLORIDE 110 mEq/L (98-107)
[2021-12-04 21:15] LABS: ETHANOL BLOOD < 10 mg/dL
[2021-12-04 21:26] LABS: CLARITY URINE CLEAR (CLEAR); COLOR URINE YELLOW (YELLOW); KETONES URINE NEGATIVE (NEGATIVE); LEUKOCYTE ESTERASE URINE NEGATIVE (NEGATIVE); NITRITE URINE NEGATIVE (NEGATIVE); OCCULT BLOOD URINE NEGATIVE (NEGATIVE); PROTEIN URINE NEGATIVE (NEGATIVE); SPECIFIC GRAVITY URINE 1.003 (1.005-1.030); UROBILINOGEN URINE 0.2 E.U./dL (0.2-1.0)
[2021-12-04 21:45] LABS: *AMPHETAMINES SCREEN URINE NEGATIVE (NEGATIVE); *BARBITURATES SCREEN URINE NEGATIVE (NEGATIVE); *BENZODIAZEPINES SCREEN URINE NEGATIVE (NEGATIVE); *COCAINE SCREEN URINE PRESUMTIVE POSITIVE (NEGATIVE)
[2021-12-04 21:47] LABS: CANNABINOID URINE SCREEN NEGATIVE (NEGATIVE); METHADONE URINE SCREEN NEGATIVE (NEGATIVE); OPIATES URINE SCREEN NEGATIVE (NEGATIVE); PHENCYCLIDINE URINE SCREEN NEGATIVE (NEGATIVE)
[2021-12-05] MEDS ORDERED: IBUPROFEN 400MG TABLET PO ONE (00:15)
[2021-12-05 00:43] VITALS: BP 183/63
== END 2021-12-05 00:47 | disposition home or self-care (01) ==
LOC: ER 19:41
DX: G89.4 Chronic pain syndrome (principal); M79.18 Myalgia, other site; R53.1 Weakness; I10 Essential (primary) hypertension; D53.9 Nutritional anemia, unspecified; I25.10 Atherosclerotic heart disease of native coronary artery without angina pectoris; J44.9 Chronic obstructive pulmonary disease, unspecified; Z87.81 Personal history of (healed) traumatic fracture
CPT/HCPCS: 36415; 71045; 80053; 80305; 80320; 81003; 83605; 83880; 84484; 85025; 93005; 99285; G0480

== ENCOUNTER 2021-12-24 16:38 | Emergency (ER) | payer MEDICARE, MEDICAID ==
[~2021-12-24] VITALS: Ht 170.2 cm; Wt 59.0 kg
[2021-12-24] MEDS ORDERED: ACETAMINOPHEN 325MG TABLET PO ONE (22:45)
[2021-12-24 23:32] VITALS: BP 135/87
== END 2021-12-24 23:35 | disposition home or self-care (01) ==
LOC: ER 16:38
DX: G62.9 Polyneuropathy, unspecified (principal); G89.29 Other chronic pain; M79.18 Myalgia, other site
CPT/HCPCS: 99283

== ENCOUNTER 2022-01-31 14:10 | Emergency (ER) | payer MEDICARE, MEDICAID ==
[~2022-01-31] VITALS: Ht 157.5 cm; Wt 56.0 kg
[2022-01-31] MEDS ORDERED: ACETAMINOPHEN 325MG TABLET PO ONE (14:45)
[2022-01-31] MEDS ORDERED: DICLOFENAC SODIUM 1% GEL 50GM TOP SCH (16:45)
[2022-01-31 17:12] VITALS: BP 122/85
== END 2022-01-31 17:14 | disposition home or self-care (01) ==
LOC: ER 14:29
DX: G90.09 Other idiopathic peripheral autonomic neuropathy (principal)
CPT/HCPCS: 99283

== ENCOUNTER 2022-02-03 09:24 | Emergency (ER) | payer MEDICARE, MEDICAID ==
[~2022-02-03] VITALS: Ht 170.2 cm; Wt 73.0 kg
[2022-02-03 09:26] VITALS: BP 132/78
[2022-02-03] MEDS ORDERED: ACETAMINOPHEN 325MG TABLET PO ONE (10:30)
[2022-02-03] MEDS ORDERED: GABAPENTIN 100MG CAPSULE PO ONE (10:30)
[2022-02-03] MEDS ORDERED: ACET-2708 MT (10:32)
[2022-02-03] MEDS ORDERED: GABA300C MT (10:32)
== END 2022-02-03 10:52 | disposition home or self-care (01) ==
LOC: ER 09:43
DX: G89.4 Chronic pain syndrome (principal)
CPT/HCPCS: 99283

== ENCOUNTER 2022-02-19 17:33 | Emergency (ER) | payer MEDICARE, MEDICAID ==
[~2022-02-19] VITALS: Ht 170.2 cm; Wt 68.0 kg
[2022-02-19 17:36] VITALS: BP 142/80
== END 2022-02-19 20:31 | disposition left against medical advice (07) ==
LOC: ER 17:33
DX: R68.89 Other general symptoms and signs (principal); F41.9 Anxiety disorder, unspecified; I10 Essential (primary) hypertension; Z79.899 Other long term (current) drug therapy
CPT/HCPCS: 99283

== ENCOUNTER 2022-03-09 15:38 | Emergency (ER) | payer MEDICARE, MEDICAID ==
[~2022-03-09] VITALS: Ht 162.6 cm; Wt 66.0 kg
[2022-03-09 15:45] VITALS: BP 135/68
[2022-03-09] MEDS ORDERED: GABA100C MT (15:53)
[2022-03-09] MEDS ORDERED: GABAPENTIN 100MG CAPSULE PO ONE (16:00)
== END 2022-03-09 16:44 | disposition home or self-care (01) ==
LOC: ER 15:38
DX: G62.9 Polyneuropathy, unspecified (principal); R53.1 Weakness; I10 Essential (primary) hypertension; F41.9 Anxiety disorder, unspecified
CPT/HCPCS: 99283

== ENCOUNTER 2022-03-12 14:15 | Emergency (ER) | payer MEDICARE, MEDICAID ==
[~2022-03-12] VITALS: Ht 170.2 cm; Wt 72.0 kg
[~2022-03-12 14:15] MED LIST changes: +GABA100C MT
[2022-03-12 14:17] VITALS: BP 144/75
[2022-03-12] MEDS ORDERED: ACETAMINOPHEN 325MG TABLET PO STA (14:54)
[2022-03-12] MEDS ORDERED: GABAPENTIN 300MG CAPSULE PO STA (14:54)
[2022-03-12] MEDS ORDERED: ACET-2708 PO (15:55)
[2022-03-12] MEDS ORDERED: GABA-529 PO (15:55)
== END 2022-03-12 16:38 | disposition home or self-care (01) ==
LOC: ER 14:27
DX: G62.9 Polyneuropathy, unspecified (principal); M79.671 Pain in right foot; M79.672 Pain in left foot; M79.18 Myalgia, other site; F41.9 Anxiety disorder, unspecified; I10 Essential (primary) hypertension; Z79.899 Other long term (current) drug therapy
CPT/HCPCS: 93005; 99283

== ENCOUNTER 2022-03-21 13:25 | Emergency (ER) | payer MEDICARE, MEDICAID ==
[~2022-03-21] VITALS: Ht 167.6 cm; Wt 60.0 kg
[~2022-03-21 13:25] MED LIST changes: +ACET-2708 PO; +GABA-529 PO
[2022-03-21 13:58] VITALS: BP 166/71
[2022-03-21 14:12] LABS: CLARITY URINE CLEAR (CLEAR); COLOR URINE YELLOW (YELLOW); KETONES URINE TRACE (NEGATIVE); LEUKOCYTE ESTERASE URINE NEGATIVE (NEGATIVE); NITRITE URINE NEGATIVE (NEGATIVE); OCCULT BLOOD URINE NEGATIVE (NEGATIVE); PH URINE 5.5 (4.5-8.0); PROTEIN URINE NEGATIVE (NEGATIVE); SPECIFIC GRAVITY URINE 1.018 (1.005-1.030)
[2022-03-21] MEDS ORDERED: GABA100C MT (14:24)
[2022-03-21] MEDS ORDERED: GABAPENTIN 100MG CAPSULE PO ONE (14:30)
== END 2022-03-21 14:41 | disposition home or self-care (01) ==
LOC: ER 13:25
DX: G62.89 Other specified polyneuropathies (principal)
CPT/HCPCS: 81003; 99283

== ENCOUNTER 2022-03-21 15:08 | Emergency (ER) | payer MEDICARE, MEDICAID ==
[~2022-03-21] VITALS: Ht 172.7 cm; Wt 83.0 kg
[2022-03-21 15:52] VITALS: BP 114/60
[2022-03-21] MEDS ORDERED: IBUPROFEN 600MG TABLET PO ONE (20:30)
== END 2022-03-21 22:00 | disposition home or self-care (01) ==
LOC: ER 15:08
DX: G89.29 Other chronic pain (principal)
CPT/HCPCS: 99281

== ENCOUNTER 2022-03-27 19:32 | Emergency (ER) | payer MEDICAID, MEDICARE ==
[~2022-03-27] VITALS: Ht 165.1 cm; Wt 66.0 kg
[2022-03-27 19:36] VITALS: BP 142/88
[2022-03-27] MEDS ORDERED: TRANEXAMIC ACID 1,000 MG/10 ML IV ONE (20:45)
[2022-03-27] MEDS ORDERED: METHYLERGONOVINE MALEATE 0.2 MG/ML IM ONE (20:45)
[2022-03-27] MEDS ORDERED: ACETAMINOPHEN 325MG TABLET PO ONE (21:15)
== END 2022-03-27 21:00 | disposition home or self-care (01) ==
LOC: ER 19:32
DX: G62.9 Polyneuropathy, unspecified (principal); G89.29 Other chronic pain; M79.18 Myalgia, other site; F41.9 Anxiety disorder, unspecified; I10 Essential (primary) hypertension; Z91.14 Patient's other noncompliance with medication regimen
CPT/HCPCS: 99283

== ENCOUNTER 2022-03-28 00:08 | Emergency (ER) | payer MEDICARE ==
[~2022-03-28] VITALS: Ht 165.1 cm; Wt 58.8 kg
[2022-03-28 00:19] VITALS: BP 165/63
[2022-03-28] MEDS ORDERED: ACETAMINOPHEN 500MG TABLET PO ONE (04:00)
== END 2022-03-28 04:28 | disposition home or self-care (01) ==
LOC: ER 00:08
DX: M79.10 Myalgia, unspecified site (principal); I10 Essential (primary) hypertension; Z79.899 Other long term (current) drug therapy
CPT/HCPCS: 99282

== ENCOUNTER 2022-04-11 14:34 | Emergency (ER) | payer MEDICARE ==
[~2022-04-11] VITALS: Ht 167.6 cm; Wt 60.0 kg
[2022-04-11 14:38] VITALS: BP 123/72
== END 2022-04-11 16:33 | disposition left against medical advice (07) ==
LOC: ER 14:34
DX: Z53.21 Procedure and treatment not carried out due to patient leaving prior to being seen by health care provider (principal)

== ENCOUNTER 2022-04-11 16:56 | Emergency (ER) | payer MEDICARE, MEDICAID ==
[~2022-04-11] VITALS: Ht 167.6 cm; Wt 75.0 kg
[2022-04-11 21:33] LABS: BASOPHILS % 1.6 % (0.0-2.0); EOSINOPHILS % 3.8 % (0.0-5.0); HEMATOCRIT. 34.3 % (42.0-52.0); HEMOGLOBIN. 10.4 g/dL (14.0-18.0); LYMPHOCYTES % 50.7 % (20.0-50.0); MEAN CORPUSCULAR HEMOGLOBIN 23.8 pg (28.0-32.0); MEAN CORPUSCULAR VOLUME 78.7 fL (80.0-94.0); MEAN PLATELET VOLUME 8.3 fl (7.4-10.4); MONOCYTES % 9.4 % (2.0-8.0); NEUTROPHILS % 34.5 % (40.0-76.0); PLATELET 336 x1000/uL (130-400); RED BLOOD CELL COUNT 4.36 mill/uL (4.7-6.1); RED CELL DISTRIBUTION WIDTH 18.1 % (11.6-14.6)
[2022-04-11 21:38] LABS: CHLORIDE 104 mEq/L (98-107)
[2022-04-11 21:50] LABS: ETHANOL BLOOD < 10 mg/dL
[2022-04-11 21:56] LABS: CLARITY URINE CLEAR (CLEAR); COLOR URINE YELLOW (YELLOW); KETONES URINE TRACE (NEGATIVE); LEUKOCYTE ESTERASE URINE NEGATIVE (NEGATIVE); NITRITE URINE NEGATIVE (NEGATIVE); OCCULT BLOOD URINE NEGATIVE (NEGATIVE); PH URINE 5.5 (4.5-8.0); PROTEIN URINE TRACE (NEGATIVE); SPECIFIC GRAVITY URINE 1.026 (1.005-1.030)
[2022-04-12] MEDS ORDERED: ACETAMINOPHEN 325MG TABLET PO ONE
[2022-04-12] MEDS ORDERED: OLANZAPINE 10 MG/VIAL IM ONE (02:30)
[2022-04-12 08:00] VITALS: BP 158/84
== END 2022-04-12 09:37 | disposition home or self-care (01) ==
LOC: ER 16:56
DX: Z79.899 Other long term (current) drug therapy (principal)
CPT/HCPCS: 36415; 71045; 80053; 80320; 81003; 83605; 83880; 84484; 85025; 93005; 96372; 99285; J3490; G0480

== ENCOUNTER 2022-04-13 13:47 | Emergency (ER) | payer MEDICARE, MEDICAID ==
[~2022-04-13] VITALS: Ht 167.6 cm; Wt 64.0 kg
[2022-04-13 14:19] VITALS: BP 136/74
== END 2022-04-13 16:22 | disposition home or self-care (01) ==
LOC: ER 13:47
DX: G62.9 Polyneuropathy, unspecified (principal); M79.18 Myalgia, other site; F41.9 Anxiety disorder, unspecified; I10 Essential (primary) hypertension; Z79.899 Other long term (current) drug therapy; Z20.822 Contact with and (suspected) exposure to COVID-19
CPT/HCPCS: 87426; 99283; C9803

== ENCOUNTER 2022-06-01 14:43 | Emergency (ER) | payer MEDICARE, MEDICAID ==
[~2022-06-01] VITALS: Ht 167.6 cm; Wt 69.0 kg
[2022-06-01] MEDS ORDERED: GABA-290 MT (19:10)
[2022-06-01] MEDS ORDERED: TOPUD MT (19:10)
[2022-06-01] MEDS ORDERED: GABAPENTIN 300MG CAPSULE PO ONE (19:15)
[2022-06-01] MEDS ORDERED: KETOROLAC 60MG/2ML VIAL IM ONE (19:15)
[2022-06-01] MEDS ORDERED: ACETAMINOPHEN 325MG TABLET PO ONE (19:15)
[2022-06-01 19:56] VITALS: BP 114/78
== END 2022-06-01 20:00 | disposition home or self-care (01) ==
LOC: ER 14:43
DX: G89.4 Chronic pain syndrome (principal); M79.18 Myalgia, other site; R20.8 Other disturbances of skin sensation; R68.83 Chills (without fever); I10 Essential (primary) hypertension; Z79.899 Other long term (current) drug therapy
CPT/HCPCS: 96372; 99283; J1885

== ENCOUNTER 2022-06-01 20:46 | Emergency (ER) | payer MEDICARE, MEDICAID ==
[~2022-06-01 20:46] MED LIST changes: +GABA-290 MT; +TOPUD MT
== END 2022-06-01 23:12 | disposition left against medical advice (07) ==
LOC: ER 22:12
DX: Z53.21 Procedure and treatment not carried out due to patient leaving prior to being seen by health care provider (principal)

== ENCOUNTER 2022-06-19 08:45 | Emergency (ER) | payer MEDICARE, MEDICAID ==
[~2022-06-19] VITALS: Ht 172.7 cm; Wt 61.0 kg
[2022-06-19 08:49] VITALS: BP 128/64
[2022-06-19] MEDS ORDERED: ACETAMINOPHEN 325MG TABLET PO ONE (09:00)
== END 2022-06-19 10:18 | disposition home or self-care (01) ==
LOC: ER 09:11
DX: G89.29 Other chronic pain (principal); M79.18 Myalgia, other site; R20.8 Other disturbances of skin sensation
CPT/HCPCS: 99283

== ENCOUNTER 2022-10-15 16:04 | Emergency (ER) | payer MEDICARE, MEDICAID ==
[~2022-10-15] VITALS: Ht 170.2 cm; Wt 78.0 kg
[2022-10-15 16:07] VITALS: BP 160/79
[2022-10-15] MEDS ORDERED: ACETAMINOPHEN 325MG TABLET PO ONE (17:00)
== END 2022-10-15 19:21 | disposition home or self-care (01) ==
LOC: ER 16:04
DX: R20.2 Paresthesia of skin (principal); F41.9 Anxiety disorder, unspecified; I10 Essential (primary) hypertension; Z79.899 Other long term (current) drug therapy
CPT/HCPCS: 99283

== ENCOUNTER 2022-11-22 18:29 | Emergency (ER) | payer MEDICARE, MEDICAID ==
[~2022-11-22] VITALS: Ht 170.2 cm; Wt 63.0 kg
[2022-11-22] MEDS ORDERED: IBUPROFEN 400MG TABLET PO ONE (19:30)
[2022-11-22 19:40] VITALS: BP 194/71
[2022-11-22 20:20] LABS: CHLORIDE 108 mEq/L (98-107)
[2022-11-22] MEDS ORDERED: IBUP-2028 MT (20:31)
== END 2022-11-22 20:55 | disposition home or self-care (01) ==
LOC: ER 18:29
DX: G62.9 Polyneuropathy, unspecified (principal); I10 Essential (primary) hypertension; E11.9 Type 2 diabetes mellitus without complications
CPT/HCPCS: 36415; 80053; 99283

== ENCOUNTER 2022-12-18 14:33 | Emergency (ER) | payer MEDICARE, MEDICAID ==
[~2022-12-18] VITALS: Ht 172.7 cm; Wt 73.0 kg
[~2022-12-18 14:33] MED LIST changes: +IBUP-2028 MT
[2022-12-18 14:40] VITALS: BP 158/63
[2022-12-18] MEDS ORDERED: ACETAMINOPHEN 325MG TABLET PO ONE (15:15)
[2022-12-18] MEDS ORDERED: GABAPENTIN 100MG CAPSULE PO ONE (15:15)
[2022-12-18] MEDS ORDERED: TOPUD MT (15:28)
== END 2022-12-18 21:06 | disposition home or self-care (01) ==
LOC: ER 16:31
DX: G89.29 Other chronic pain (principal); F41.9 Anxiety disorder, unspecified; I10 Essential (primary) hypertension
CPT/HCPCS: 99283

== ENCOUNTER 2023-07-14 10:54 | Emergency (ER) | payer MEDICARE, MEDICAID ==
[~2023-07-14] VITALS: Ht 172.7 cm; Wt 79.0 kg
[2023-07-14 10:56] VITALS: BP 162/84; PULSE 76; RESP 14; O2SAT 100
[2023-07-14] MEDS ORDERED: ACETAMINOPHEN 325MG TABLET PO ONE (16:45)
[2023-07-14 17:09] LABS: BASOPHILS % 0.4 % (0.0-2.0); DIFFERENTIAL COMMENT 0; EOSINOPHILS % 1.8 % (0.0-5.0); HEMATOCRIT. 40.2 % (42.0-52.0); HEMOGLOBIN. 12.2 g/dL (14.0-18.0); LYMPHOCYTES % 40.8 % (20.0-50.0); MEAN CORPUSCULAR HEMOGLOBIN 25.5 pg (28.0-32.0); MEAN CORPUSCULAR HGB CONC 30.3 g/dL (31.0-37.0); MEAN CORPUSCULAR VOLUME 83.9 fL (80.0-94.0); MEAN PLATELET VOLUME 8.6 fl (7.4-10.4); PLATELET 299 x1000/uL (130-400); RED BLOOD CELL COUNT 4.79 mill/uL (4.7-6.1); RED CELL DISTRIBUTION WIDTH 18.2 % (11.6-14.6); WHITE BLOOD COUNT 7.3 x1000/uL (4.5-11.0)
[2023-07-14 17:23] VITALS: TEMP 97.1
[2023-07-14 17:27] LABS: ALANINE AMINOTRANSFERASE 9 IU/L (10-49); ALBUMIN 4.1 g/dL (3.2-4.8); ASPARTATE AMINOTRANSFERASE 19 IU/L (<34); BILIRUBIN TOTAL 0.5 mg/dL (0.1-1.0); CALCIUM 10.5 mg/dL (8.7-10.4); CARBON DIOXIDE 23 mEq/L (21-32); CHLORIDE 104 mEq/L (98-107); CREATINE KINASE 58 IU/L (46-171); CREATININE 1.2 mg/dL (0.6-1.3); GLUCOSE 99 mg/dL (70-105); POTASSIUM 4.5 mEq/L (3.5-5.1); PROTEIN TOTAL 7.4 g/dL (6.0-8.3); SODIUM 135 mEq/L (136-145); UREA NITROGEN BLOOD 8 mg/dL (9-23)
== END 2023-07-14 20:41 | disposition home or self-care (01) ==
LOC: ER 11:02
DX: R21 Rash and other nonspecific skin eruption (principal); G89.29 Other chronic pain; F41.9 Anxiety disorder, unspecified; I10 Essential (primary) hypertension; Z79.899 Other long term (current) drug therapy
CPT/HCPCS: 36415; 80053; 82550; 85025; 93005; 99284

== ENCOUNTER 2023-07-23 17:16 | Emergency (ER) | payer MEDICARE, MEDICAID ==
[~2023-07-23] VITALS: Ht 167.6 cm; Wt 63.0 kg
[2023-07-23 17:25] VITALS: BP 124/86; PULSE 82; RESP 16; TEMP 98.3; O2SAT 99
[2023-07-23 18:38] LABS: BASOPHILS % 0.8 % (0.0-2.0); EOSINOPHILS % 3.2 % (0.0-5.0); HEMATOCRIT. 39.9 % (42.0-52.0); HEMOGLOBIN. 12.4 g/dL (14.0-18.0); LYMPHOCYTES % 52.2 % (20.0-50.0); MEAN CORPUSCULAR HEMOGLOBIN 26.1 pg (28.0-32.0); MEAN CORPUSCULAR VOLUME 84.2 fL (80.0-94.0); MEAN PLATELET VOLUME 8.1 fl (7.4-10.4); MONOCYTES % 8.5 % (2.0-8.0); NEUTROPHILS % 35.3 % (40.0-76.0); PLATELET 364 x1000/uL (130-400); RED BLOOD CELL COUNT 4.74 mill/uL (4.7-6.1); RED CELL DISTRIBUTION WIDTH 17.9 % (11.6-14.6); WHITE BLOOD COUNT 6.8 x1000/uL (4.5-11.0)
[2023-07-23 18:55] LABS: ALANINE AMINOTRANSFERASE < 7 IU/L (10-49); ALBUMIN 4.2 g/dL (3.2-4.8); ASPARTATE AMINOTRANSFERASE 15 IU/L (<34); BILIRUBIN TOTAL 0.2 mg/dL (0.1-1.0); CALCIUM 10.4 mg/dL (8.7-10.4); CARBON DIOXIDE 28 mEq/L (21-32); CHLORIDE 109 mEq/L (98-107); GLUCOSE 98 mg/dL (70-105); POTASSIUM 4.6 mEq/L (3.5-5.1); PROTEIN TOTAL 7.4 g/dL (6.0-8.3); SODIUM 140 mEq/L (136-145); UREA NITROGEN BLOOD 9 mg/dL (9-23)
== END 2023-07-23 21:36 | disposition home or self-care (01) ==
LOC: ER 17:16
DX: M79.671 Pain in right foot (principal); M79.672 Pain in left foot; G89.29 Other chronic pain; F41.9 Anxiety disorder, unspecified; I10 Essential (primary) hypertension; Z79.899 Other long term (current) drug therapy
CPT/HCPCS: 36415; 80053; 85025; 99283

== ENCOUNTER 2024-01-15 07:53 | Emergency (ER) | payer MEDICARE, MEDICAID ==
[~2024-01-15] VITALS: Ht 157.5 cm; Wt 55.0 kg
[2024-01-15 07:56] VITALS: O2SAT 99
[2024-01-15] MEDS ORDERED: CLOP-31 MT (08:00)
[2024-01-15] MEDS ORDERED: AMLO10TA80 MT (08:00)
[2024-01-15] MEDS ORDERED: ATOR10TA69 MT (08:00)
[2024-01-15 09:41] VITALS: BP 165/78; PULSE 91; RESP 14; TEMP 98
[2024-01-15] MEDS: ACETAMINOPHEN 325MG TABLET PO ONE (09:41)
== END 2024-01-15 09:42 | disposition home or self-care (01) ==
LOC: ER 07:53
DX: Z76.0 Encounter for issue of repeat prescription (principal); F41.9 Anxiety disorder, unspecified; I10 Essential (primary) hypertension
CPT/HCPCS: 99283

== ENCOUNTER 2024-01-29 07:31 | Emergency (ER) | payer MEDICARE, MEDICAID ==
[~2024-01-29] VITALS: Ht 167.6 cm; Wt 66.0 kg
[~2024-01-29 07:31] MED LIST changes: +AMLO10TA80 MT; +ATOR10TA69 MT; +CLOP-31 MT
[2024-01-29 07:34] VITALS: O2SAT 98
[2024-01-29] MEDS: ACETAMINOPHEN 325MG TABLET PO NR (09:03)
[2024-01-29 10:14] VITALS: BP 136/78; PULSE 64; RESP 18; TEMP 98
== END 2024-01-29 10:14 | disposition home or self-care (01) ==
LOC: ER 07:31
DX: R51.9 Headache, unspecified (principal); I10 Essential (primary) hypertension; Z79.899 Other long term (current) drug therapy
CPT/HCPCS: 99284

== ENCOUNTER 2024-03-15 07:07 | Emergency (ER) | payer MEDICARE, MEDICAID ==
[~2024-03-15] VITALS: Ht 165.1 cm; Wt 50.0 kg
[2024-03-15 07:10] VITALS: O2SAT 98
[2024-03-15 07:48] LABS: BASOPHILS % 0.9 % (0.0-2.0); DIFFERENTIAL COMMENT 0; EOSINOPHILS % 3.7 % (0.0-5.0); HEMATOCRIT. 38.1 % (42.0-52.0); HEMOGLOBIN. 11.6 g/dL (14.0-18.0); LYMPHOCYTES % 48.1 % (20.0-50.0); MEAN CORPUSCULAR HEMOGLOBIN 25.7 pg (28.0-32.0); MEAN CORPUSCULAR HGB CONC 30.4 g/dL (31.0-37.0); MEAN CORPUSCULAR VOLUME 84.5 fL (80.0-94.0); MEAN PLATELET VOLUME 8.3 fl (7.4-10.4); MONOCYTES % 7.6 % (2.0-8.0); NEUTROPHILS % 39.7 % (40.0-76.0); PLATELET 283 x1000/uL (130-400); RED BLOOD CELL COUNT 4.51 mill/uL (4.7-6.1); RED CELL DISTRIBUTION WIDTH 17.4 % (11.6-14.6); WHITE BLOOD COUNT 6.9 x1000/uL (4.5-11.0)
[2024-03-15 08:00] LABS: CARBON DIOXIDE 25 mEq/L (21-32); CHLORIDE 106 mEq/L (98-107); POTASSIUM 4.3 mEq/L (3.5-5.1); SODIUM 136 mEq/L (136-145)
[2024-03-15 08:01] LABS: CALCIUM 10.8 mg/dL (8.7-10.4)
[2024-03-15] MEDS: ACETAMINOPHEN 325MG TABLET PO STA (08:04)
[2024-03-15 08:05] LABS: CREATININE 0.9 mg/dL (0.6-1.3)
[2024-03-15 08:06] LABS: GLUCOSE 88 mg/dL (70-105); INR 0.9; PROTHROMBIN TIME 10.2 sec (9.6-11.0); UREA NITROGEN BLOOD 6 mg/dL (9-23)
[2024-03-15] MEDS: NICOTINE 14MG PATCH TD ONE (09:19)
[2024-03-15 10:27] VITALS: BP 155/88; PULSE 78; RESP 17; TEMP 98.2
== END 2024-03-15 11:01 | disposition left against medical advice (07) ==
LOC: ER 07:26 → EDBEDREQ 10:03 → ER 11:01
DX: G89.4 Chronic pain syndrome (principal)
CPT/HCPCS: 99283; 80048; 85025; 85610; 36415; C1893